=== PATIENT | male | born 1975 | race Caucasian/White ===

== ENCOUNTER 2017-11-18 12:39 | Emergency (ER) | payer OTHER, SELFPAY ==
[2017-11-18 12:40] VITALS: BP 121/79; PULSE 77; RESP 16; TEMP 36.4; O2SAT 98; BMI 24.3
--- NOTE | 2017-11-18 12:52 | VDLE_ITS ---
Reason For Study: PAIN RIGHT GSV is normal. CFV is compressible, spontaneous, phasic, competent and demonstrates normal augmentation. FV is compressible, spontaneous, phasic, competent and demonstrates normal augmentation. POP V is compressible, spontaneous, phasic, competent and demonstrates normal augmentation. T/P Trunk is compressible. PTV is compressible. RT PerV is compressible. Procedure Exam performed portable in ED. A preliminary report was called and/or faxed to ED. Interpretation Summary There is no evidence of right lower extremity deep vein thrombosis. Right greater saphenous vein appears patent and compressible segmentally. Ordering Physician: Jason Cueva Performed By: Jordana Burris, TERI, RVT
--- NOTE | 2017-11-18 14:53 | ED.VISSUMM ---
- ER Visit Summary Date of Service: 11/18/17 Chief Complaint: Right thigh pain History of Present Illness: The patient is a 42 M with a history of DVT approximately 5 years ago resents with atraumatic right thigh pain for the past 3 days. He does not recall specific injury but he does work at a [employer] facility and does a lot of lifting and movement. He has not fallen and did not sustain any direct trauma. He has no thigh swelling or paresthesias. No recent travel or mobilization. His remote DVT was after a surgery and he did not test positive for clotting disorder. He has no associated chest pain or shortness of breath. No lower back pain. Does have a history of sciatica but this pain is slightly more lateral than his usual sciatica pain. Physical Examination: Vitals are within normal limits. He is not in distress. There is no objective thigh tenderness. No swelling. Compartments are soft. Strong distal pulses. No calf tenderness. No tenderness along the venous system or palpable cords. Overlying skin looks normal. No back tenderness. Negative straight leg raise. Test Results: Ultrasound was negative for DVT Emergency Department Course and Treatment: Exact cause of this is unclear. No evidence of DVT. Compartments are soft. No trauma to put him at risk for compartment syndrome. No paresthesias. Strong distal pulses. He is not in distress. No sign of infection. I will treat him with a Medrol Dosepak and muscle relaxers and he will follow closely with his doctor. He will return if worse. Treatment Plan: Oral medications, return if worse Disposition: Home stable condition Impression: Initial encounter right thigh pain This note was generated with [employer] dictation software. It may contain incorrect words, spelling, and punctuation that were not noted in review of the chart prior to signing ED Disposition - Plan for ED Patient: Chief Complaint: Other, Pain/Inj Instructions: ED Muscle Pain Leg Cramps Prescriptions: MethylPREDNISolone DosePak [Medrol DosePak] 4 mg PO UD #1 box Cyclobenzaprine [Flexeril] 10 mg PO TID PRN #20 tablet PRN Reason: Muscle Spasm Referrals: Care Physician,No Primary [Primary Care Provider] - As soon as possible
== END 2017-11-18 15:14 | disposition home or self-care (01) ==
PROVIDERS: Emergency Provider Emergency Medicine
DX: M79.651 Pain in right thigh (principal); M54.30 Sciatica, unspecified side; Z86.718 Personal history of other venous thrombosis and embolism
CPT/HCPCS: 93971; 99282